=== PATIENT | female | born 1980 | race Caucasian/White ===

== ENCOUNTER → 2016-04-26 | Outpatient (REF) ==
--- NOTE | 2016-04-26 14:01 | REP ---
CERVICAL SPINE, THREE VIEWS: HISTORY: Degenerative disc disease. The cervical spine is visualized from C1 to C7 in the lateral radiograph. There is no acute fracture or subluxation. The intervertebral discs are normal in height. IMPRESSION: There is no acute fracture or subluxation. Signed by Manjit Araya MD 04/26/2016 02:03 P
--- NOTE | 2016-04-26 14:26 | REP ---
LUMBAR SPINE, THREE VIEWS: HISTORY: Degenerative disc disease. There is no acute fracture or subluxation. The intervertebral discs are normal in height. IMPRESSION: There is no acute fracture or subluxation. Signed by Manjit Araya MD 04/26/2016 02:28 P
== END ==
LOC: M SMT 13:23
PROVIDERS: ATTEND Internal Medicine
DX: Z02.1 Encounter for pre-employment examination (principal)